=== PATIENT | female | born 1945 | race Caucasian/White ===

== ENCOUNTER 2017-08-02 02:22 | Observation (INO) | payer MEDICARE, OTHER ==
[~2017-08-02] VITALS: Ht 166.4 cm; Wt 65.0 kg
[2017-08-02] VITALS (8 sets, daily range): BP systolic 130–183; BP diastolic 76–90; PULSE 78–97; RESP 16–18; TEMP 97.7–98.4; O2SAT 96–100
[~2017-08-02 02:22] MED LIST: ALEN70 PO; IMIT100T OR
[2017-08-02] MEDS ORDERED: ALPR0.5T3 PO (02:47)
[2017-08-02] MEDS ORDERED: DENO60P SQ (02:47)
[2017-08-02] MEDS ORDERED: ASPI-516 CHEW (02:47)
[2017-08-02] MEDS ORDERED: SUMA100T2 PO (02:47)
[2017-08-02 03:02] LABS: AUTOMATED NEUTROPHIL # 3.1 TH/MM3 (1.8-7.7); BASOPHIL # 0.1 TH/MM3 (0-0.2); BASOPHIL % 1.1 % (0.0-2.0); EOSINOPHIL # 0.2 TH/MM3 (0-0.4); EOSINOPHIL % 2.5 % (0.0-4.0); HEMATOCRIT 44.3 % (35.0-46.0); HEMOGLOBIN 14.9 GM/DL (11.6-15.3); LYMPH % 52.6 % (9.0-44.0); LYMPHOCYTE # 4.3 TH/MM3 (1.0-4.8); MEAN CELL VOLUME 90.4 FL (80.0-100.0); MEAN CORPUSCULAR HEMOGLOBIN 30.4 PG (27.0-34.0); MEAN CORPUSCULAR HGB CONC 33.6 % (32.0-36.0); MEAN PLATELET VOLUME 10.3 FL (7.0-11.0); MONO % 6.7 % (0.0-8.0); MONOCYTE # 0.6 TH/MM3 (0-0.9); NEUT % 37.1 % (16.0-70.0); PLATELET COUNT 174 TH/MM3 (150-450); RED BLOOD COUNT 4.91 MIL/MM3 (4.00-5.30); RED CELL DISTRIBUTION WIDTH 13.5 % (11.6-17.2); WHITE BLOOD COUNT 8.3 TH/MM3 (4.0-11.0)
[2017-08-02 03:12] LABS: PROTHROMBIN TIME - PATIENT 10.1 SEC (9.8-11.6)
[2017-08-02 03:24] LABS: TROPONIN I LESS THAN 0.02 NG/ML (0.02-0.05)
[2017-08-02 03:25] LABS: BICARBONATE 23.9 MEQ/L (21.0-32.0); BLOOD UREA NITROGEN 22 MG/DL (7-18); CALCIUM 9.5 MG/DL (8.5-10.1); CHLORIDE 107 MEQ/L (98-107); CREATININE 0.94 MG/DL (0.50-1.00); GLOMERULAR FILTRATION RATE 58 ML/MIN (>89); GLUCOSE,RANDOM 101 MG/DL (74-106); MAGNESIUM 2.2 MG/DL (1.5-2.5); SODIUM (NA) 142 MEQ/L (136-145)
--- NOTE | 2017-08-02 03:32 | PD ---
HPI Chief Complaint: Cardiac Complaint Time Seen by Provider: 02:34 Travel History International Travel<30 days: No Contact w/Intl Traveler<30days: No Traveled to known affect area: No History of Present Illness HPI pt awoke tonight shaking feeling cold and for 20 minutes went a sat on couch turn and changed the temp on the air conditioning but it continued , SHe 4 days ago had a near syncopal episode while riding her bicycle with , they ride every night in evening for years , that night she felt dizziness and then they stopped held her up and lowered her to the ground and she lay on the grass lawn of police officier that they knew , he drove her home pigs feet finisher at the scene that night advised her if anything returns ( dizzness lightheraded) to go to hospital , SO tonight after she awoke shivering and tremulous she thought she should come to hospital and on arrival she seems anxious of her current health, bedside is good historian for all of the above HPI and ROS PFSH Past Medical History Asthma: No Blood Disorders: No Anxiety: Yes Depression: No Heart Rhythm Problems: No Cancer: Yes (LEFT AND RIGHT BREAST LUMPECTOMY) Cardiovascular Problems: No High Cholesterol: No Chemotherapy: No Chest Pain: No Congestive Heart Failure: No COPD: No Diabetes: No Endocrine: No Genitourinary: No Immune Disorder: No Musculoskeletal: No Neurologic: No Psychiatric: No Reproductive: No Respiratory: No Radiation Therapy: Yes Sleep Apnea: No Thyroid Disease: No Past Surgical History Tonsillectomy: Yes Other Surgery: Yes Social History Alcohol Use: Yes (OCC) Tobacco Use: No Substance Use: No Allergies-Medications (Allergen,Severity, Reaction): Coded Allergies: Cephalosporins (Verified Allergy, Unknown, 08/02/17) Reported Meds & Prescriptions Reported Meds & Active Scripts Active Reported Aspirin 81 Mg Chew 81 Mg CHEW DAILY Alprazolam 0.5 Mg Tab 0.5 Mg PO Q6H PRN Prolia Inj (Denosumab) 60 Mg/Ml Inj 60 Mg SQ Q180D Sumatriptan (Sumatriptan Succinate) 100 Mg Tab 100 Mg PO ONCE PRN If a satisfactory response has not been obtained at 2 hours, a second dose may be administered Review of Systems Except as stated in HPI: all other systems reviewed are Neg Physical Exam Narrative GENERAL: slightly pale appears anxious of her current health state SKIN: Warm and dry. HEAD: Atraumatic. Normocephalic. EYES: Pupils equal and round. No scleral icterus. No injection or drainage. ENT: No nasal bleeding or discharge. Mucous membranes pink and moist. NECK: Trachea midline. No JVD. CARDIOVASCULAR: Regular rate and rhythm. RESPIRATORY: No accessory muscle use. Clear to auscultation. Breath sounds equal bilaterally. GASTROINTESTINAL: Abdomen soft, non-tender, nondistended. Hepatic and splenic margins not palpable. MUSCULOSKELETAL: Extremities without clubbing, cyanosis, or edema. No obvious deformities. NEUROLOGICAL: Awake and alert. No obvious cranial nerve deficits. Motor grossly within normal limits. Five out of 5 muscle strength in the arms and legs. Normal speech. PSYCHIATRIC: Appropriate mood and affect; insight and judgment normal. Data Data Last Documented VS Vital Signs Date Time Temp Pulse Resp B/P (MAP) Pulse Ox O2 Delivery O2 Flow Rate FiO2 08/02/17 02:42 93 18 183/86 (118) 99 Room Air 08/02/17 02:26 98.0 Orders Orders Electrocardiogram (08/02/17 02:36) Basic Metabolic Panel (Bmp) (08/02/17 02:36) Ckmb (Isoenzyme) Profile (08/02/17 02:36) Complete Blood Count With Diff (08/02/17 02:36) Magnesium (Mg) (08/02/17 02:36) Prothrombin Time / Inr (Pt) (08/02/17 02:36) Act Partial Throm Time (Ptt) (08/02/17 02:36) Troponin I (08/02/17 02:36) Chest, Single Ap (08/02/17 02:36) CKMB (08/02/17 02:50) CKMB% (08/02/17 02:50) Urinalysis - C+S If Indicated (08/02/17 03:33) Alprazolam (Xanax) (08/02/17 04:30) Admit Order (Ed Use Only) (08/02/17 04:29) Labs Laboratory Tests Test 08/02/17 02:50 08/02/17 03:50 White Blood Count 8.3 TH/MM3 Red Blood Count 4.91 MIL/MM3 Hemoglobin 14.9 GM/DL Hematocrit 44.3 % Mean Corpuscular Volume 90.4 FL Mean Corpuscular Hemoglobin 30.4 PG Mean Corpuscular Hemoglobin Concent 33.6 % Red Cell Distribution Width 13.5 % Platelet Count 174 TH/MM3 Mean Platelet Volume 10.3 FL Neutrophils (%) (Auto) 37.1 % Lymphocytes (%) (Auto) 52.6 % Monocytes (%) (Auto) 6.7 % Eosinophils (%) (Auto) 2.5 % Basophils (%) (Auto) 1.1 % Neutrophils # (Auto) 3.1 TH/MM3 Lymphocytes # (Auto) 4.3 TH/MM3 Monocytes # (Auto) 0.6 TH/MM3 Eosinophils # (Auto) 0.2 TH/MM3 Basophils # (Auto) 0.1 TH/MM3 CBC Comment DIFF FINAL Differential Comment Prothrombin Time 10.1 SEC Prothromb Time International Ratio 1.0 RATIO Activated Partial Thromboplast Time 25.6 SEC Blood Urea Nitrogen 22 MG/DL Creatinine 0.94 MG/DL Random Glucose 101 MG/DL Calcium Level 9.5 MG/DL Magnesium Level 2.2 MG/DL Sodium Level 142 MEQ/L Potassium Level 3.7 MEQ/L Chloride Level 107 MEQ/L Carbon Dioxide Level 23.9 MEQ/L Anion Gap 11 MEQ/L Estimat Glomerular Filtration Rate 58 ML/MIN Total Creatine Kinase 211 U/L Creatine Kinase MB 0.9 NG/ML Creatine Kinase MB % 0.4 % Troponin I LESS THAN 0.02 NG/ML Urine Color LIGHT-YELLOW Urine Turbidity CLEAR Urine pH 6.0 Urine Specific [place] 1.009 Urine Protein NEG mg/dL Urine Glucose (UA) NEG mg/dL Urine Ketones TRACE mg/dL Urine Occult Blood NEG Urine Nitrite NEG Urine Bilirubin NEG Urine Urobilinogen LESS THAN 2.0 MG/DL Urine Leukocyte Esterase NEG Urine RBC LESS THAN 1 /hpf Urine WBC LESS THAN 1 /hpf Urine Squamous Epithelial Cells 2 /hpf Urine Mucus FEW /lpf Microscopic Urinalysis Comment CULT NOT INDICATED MDM Medical Decision Making Medical Screen Exam Complete: Yes Emergency Medical Condition: Yes Differential Diagnosis cardiac event cuasing near syncope and recurrence tonight vs neurologic causes vs anxiety attack tonight over her health scare four days ago other . PE vs UTI vs other systemic illness or infectious source for symptoms Narrative Course Urine negative and labs normal and EKG and troponin negative will admit for serial trop and Stress in AM pt agrees with plan Diagnosis Primary Impression: Tremulousness Juan Diego Powers MD Aug 02, 2017 03:32
--- NOTE | 2017-08-02 03:32 | RADRPT ---
EXAM DATE: 08/02/2017 2:59 AM EDT AGE/SEX: 72 years / Female INDICATIONS: Weakness, body shakes for 1 hour CLINICAL DATA: This is the patient's initial encounter. Patient reports that signs and symptoms have been present for 1 day and indicates a pain score of 3/10. MEDICAL/SURGICAL HISTORY: None. None. COMPARISON: No prior exams available for comparison. FINDINGS: A single AP view of the chest demonstrates the lungs to be symmetrically aerated without evidence of mass, infiltrate or effusion. The cardiomediastinal contours are unremarkable. Osseous structures a re intact. CONCLUSION: Negative examination. Electronically signed by: Ryan Trent MD 08/02/2017 3:30 AM EDT
[2017-08-02 04:07] LABS: BILIRUBIN, URINE NEG (NEG); BLOOD, URINE NEG (NEG); GLUCOSE,URINE NEG (NEG); KETONE, URINE TRACE mg/dL (NEG); MUCUS URINE FEW /lpf (OCC); NITRITE,URINE NEG (NEG); SQUAMOUS EPITHELIAL CELL URINE 2 /hpf (0-5); URINE COLOR LIGHT-YELLOW (YELLW/STRAW); URINE LEUKOCYTE ESTERASE NEG (NEG)
[2017-08-02] MEDS ORDERED: ALPRAZolam 0.5 MG TAB PO ONE (04:30)
[2017-08-02] MEDS ORDERED: SODIUM CHLORIDE 0.9% FLUSH 10 ML FLUSH IV FLUSH PRN (04:45)
[2017-08-02 06:02] LABS: TROPONIN I LESS THAN 0.02 NG/ML (0.02-0.05)
[2017-08-02] MEDS ORDERED: SODIUM CHLORIDE 0.9% FLUSH 10 ML FLUSH IV FLUSH SCH (09:00)
[2017-08-02 09:26] LABS: TROPONIN I LESS THAN 0.02 NG/ML (0.02-0.05)
--- NOTE | 2017-08-02 10:58 | HHI.HP ---
[facility] Primary Care Physician Lizbet Brandt MD Chief Complaint I felt shaky History of Present Illness This is a 72-year-old female that presents to ED with her via private vehicle with a complaint of waking up about 1:00 this morning and just not feeling right. Will after waking up she felt very shaky and cold. She woke up her . He checked her blood pressure which was 170/104 and heart rate was up but he did not notice with that was on the electronic blood pressure machine. She became concerned as she had a different episode about a week and a half ago while on a bike ride. They state that she and her about a 20 mile bike ride on a daily basis real early in the morning. A week and a half ago he did the same bike ride but it was later in the day and it was much harder. After about 10 mile she states that she had to stop abruptly. She felt very unsteady and thought that she was about to pass out. She relayed this information to her who noticed that she was unsteady and he grabbed her and as he grabbed her she had a syncopal episode. States it lasted about 4 seconds. He later down to the grass and as he did that she had another syncopal episode lasting about 10 seconds. She did not have a headache prior. There is no seizure activity. States that afterwards she did not seem confused. He did check her pulse and found it to be fast but could not give a rate. Did not feel irregular. Denies having syncopal episodes in the past. States that other than doing the bicycle ride later in the day with a higher temperature that it was a typical type activity for her. Her called 911 and upon arrival they checked her vital signs and did an EKG and everything seems stable. Transportation to the hospital was offered but at that time they declined. Her states that she looked fine and was behaving her normal fashion at that time. Denies history of CAD but states she has not had a cardiac workup in the past. Her was able to secure an appointment with his travel freight and passenger agent which is Dr. Lopez on the of this month. She currently feels fine. When asked to describe the episodes when she has fast heart rate. She states that she is actually had this in the past. States that when she gets anxious her heart rate will pharmacy picking tech but this seems to be different. Cannot really describe if the increased heart rate is abrupt with a quick return to normal rate or if the heart rate gradually builds up and then gradually resolves. Review of Systems General: Patient denies fevers, chills, and recent travel. HEENT: Patient denies headache, sore throat, difficulty swallowing. Cardiovascular: She had 2 syncopal episodes rapidly her closely to each other about a week and half ago while on her typical bike ride. Denies chest discomfort as mentioned above. Denies sensation of heart beating rapidly or irregularly. Denies diaphoresis. Respiratory: Denies shortness of breath or inspirational chest discomfort. Denies coughing wheezing or hemoptysis. GI: Patient denies nausea, vomiting, diarrhea, abdominal pain, bloody stools. Musculoskeletal: Patient denies joint pain or edema. Denies calf pain or edema. Neurovascular: Patient denies numbness, tingling, weakness in extremities. Denies headache. Endocrine: Denies polyuria and polydipsia. Hematologic: Denies easy bruising. Skin: Denies rash or itching. Past Family Social History Allergies: Coded Allergies: Cephalosporins (Verified Allergy, Unknown, 08/02/17) Past Medical History Anxiety. History of breast cancer and is in remission. Migraines. Denies hypertension, hyperlipidemia, diabetes, and known CAD. Past Surgical History She has had lumpectomy of the breast 2. Tonsillectomy. Reported Medications Reported Meds & Active Scripts Active Reported Aspirin 81 Mg Chew 81 Mg CHEW DAILY Alprazolam 0.5 Mg Tab 0.5 Mg PO Q6H PRN Prolia Inj (Denosumab) 60 Mg/Ml Inj 60 Mg SQ Q180D Sumatriptan (Sumatriptan Succinate) 100 Mg Tab 100 Mg PO ONCE PRN If a satisfactory response has not been obtained at 2 hours, a second dose may be administered Active Ordered Medications Current Medications Medications (Trade) Dose Ordered Sig/Jesús Route Start Time Stop Time Status Last Admin (NS Flush) 2 ml UNSCH PRN IV FLUSH 08/02/17 04:45 (NS Flush) 2 ml BID IV FLUSH 08/02/17 09:00 08/02/17 09:00 Family History Denies family history of CAD. Social History Lifetime non-smoker. Rarely has alcohol. Denies illicit drug use. She is . Physical Exam Vital Signs Vital Signs Date Time Temp Pulse Resp B/P (MAP) Pulse Ox O2 Delivery O2 Flow Rate FiO2 08/02/17 07:56 97 21 08/02/17 07:49 97.7 78 18 137/76 (96) 96 08/02/17 07:00 80 08/02/17 06:23 83 08/02/17 06:04 98.4 90 16 145/90 (108) 97 08/02/17 06:03 08/02/17 05:45 85 18 130/76 (94) 99 Room Air 08/02/17 02:42 93 18 183/86 (118) 99 Room Air 08/02/17 02:26 98.0 97 16 163/76 (105) 100 Physical Exam GENERAL: This is a well-nourished, well-developed patient, in no apparent distress. Patient speaks in clear complete sentences. Patient is pleasant. HEENT: Head is atraumatic and normocephalic. Neck is supple without lymphadenopathy and trachea is midline. No JVD or carotid bruits. CARDIOVASCULAR: Regular rate and rhythm without murmurs, gallops, or rubs. RESPIRATORY: Clear to auscultation. Breath sounds equal bilaterally. No wheezes , rales, or rhonchi. Chest wall is nontender. No use of accessory muscles. GASTROINTESTINAL: Abdomen is nontender, nondistended. Abdomen soft. No obvious pulsatile mass or bruit. No CVA tenderness. Strong femoral pulses bilaterally. Normal bowel sounds in all quadrants. MUSCULOSKELETAL: Patient is moving upper and lower extremities freely. No calf tenderness or edema, no Homans sign. Strong pulses in upper and lower extremities. NEUROLOGICAL: Patient is alert and oriented. Cranial nerves 2-12 are grossly intact. No focal deficits and speech is clear. SKIN: No rash and turgor is normal. Laboratory Laboratory Tests Test 08/02/17 02:50 08/02/17 03:50 08/02/17 05:13 08/02/17 08:20 White Blood Count 8.3 Red Blood Count 4.91 Hemoglobin 14.9 Hematocrit 44.3 Mean Corpuscular Volume 90.4 Mean Corpuscular Hemoglobin 30.4 Mean Corpuscular Hemoglobin Concent 33.6 Red Cell Distribution Width 13.5 Platelet Count 174 Mean Platelet Volume 10.3 Neutrophils (%) (Auto) 37.1 Lymphocytes (%) (Auto) 52.6 Monocytes (%) (Auto) 6.7 Eosinophils (%) (Auto) 2.5 Basophils (%) (Auto) 1.1 Neutrophils # (Auto) 3.1 Lymphocytes # (Auto) 4.3 Monocytes # (Auto) 0.6 Eosinophils # (Auto) 0.2 Basophils # (Auto) 0.1 CBC Comment DIFF FINAL Differential Comment Prothrombin Time 10.1 Prothromb Time International Ratio 1.0 Activated Partial Thromboplast Time 25.6 Blood Urea Nitrogen 22 Creatinine 0.94 Random Glucose 101 Calcium Level 9.5 Magnesium Level 2.2 Sodium Level 142 Potassium Level 3.7 Chloride Level 107 Carbon Dioxide Level 23.9 Anion Gap 11 Estimat Glomerular Filtration Rate 58 Total Creatine Kinase 211 188 149 Creatine Kinase MB 0.9 0.8 0.5 Creatine Kinase MB % 0.4 Troponin I LESS THAN 0.02 LESS THAN 0.02 LESS THAN 0.02 Urine Color LIGHT-YELLOW Urine Turbidity CLEAR Urine pH 6.0 Urine Specific [place] 1.009 Urine Protein NEG Urine Glucose (UA) NEG Urine Ketones TRACE Urine Occult Blood NEG Urine Nitrite NEG Urine Bilirubin NEG Urine Urobilinogen LESS THAN 2.0 Urine Leukocyte Esterase NEG Urine RBC LESS THAN 1 Urine WBC LESS THAN 1 Urine Squamous Epithelial Cells 2 Urine Mucus FEW Microscopic Urinalysis Comment CULT NOT INDICATED Result Diagram: 08/02/17 0250 08/02/17 0250 Imaging Last 48 hours Impressions Chest X-Ray 08/02/17 0236 Signed Impressions: CONCLUSION: Negative examination. Course EKGs are sinus rhythm without significant ST segment depressions or elevations. I reviewed telemetry, no arrhythmias seen while in chest pain center. Caprini VTE Risk Assessment Caprini VTE Risk Assessment: Mod/High Risk (score >= 2) Caprini Risk Assessment Model Point Value = 1 Point Value = 2 Point Value = 3 Point Value = 5 Age 41-60 Minor surgery BMI > 25 kg/m2 Swollen legs Varicose veins or History of unexplained or recurrent spontaneous Oral contraceptives or hormone replacement Sepsis (< 1 month) Serious lung disease, including pneumonia (< 1 month) Abnormal pulmonary function Acute myocardial infarction Congestive heart failure (< 1 month) History of inflammatory bowel disease Medical patient at bed rest Age 61-74 Arthroscopic surgery Major open surgery (> 45 min) Laparoscopic surgery (> 45 min) Malignancy Confined to bed (> 72 hours) Immobilizing plaster cast Central venous access Age >= 75 History of VTE Family history of VTE Factor V Leiden Prothrombin [id number] Lupus anticoagulant Anticardiolipin antibodies Elevated serum homocysteine Heparin-induced thrombocytopenia Other congenital or acquired thrombophilia Stroke (< 1 month) Elective arthroplasty Hip, pelvis, or leg fracture Acute spinal cord injury (< 1 month) Prophylaxis Regimen Total Risk Factor Score Risk Level Prophylaxis Regimen 0-1 Low Early ambulation 2 Moderate Order ONE of the following: *Sequential Compression Device (SCD) *Heparin 5000 units SQ BID 3-4 Higher Order ONE of the following medications: *Heparin 5000 units SQ TID *Enoxaparin/Lovenox 40 mg SQ daily (WT < 150 kg, CrCl > 30 mL/min) *Enoxaparin/Lovenox 30 mg SQ daily (WT < 150 kg, CrCl > 10-29 mL/min) *Enoxaparin/Lovenox 30 mg SQ BID (WT < 150 kg, CrCl > 30 mL/min) AND/OR *Sequential Compression Device (SCD) 5 or more Highest Order ONE of the following medications: *Heparin 5000 units SQ TID (Preferred with Epidurals) *Enoxaparin/Lovenox 40 mg SQ daily (WT < 150 kg, CrCl > 30 mL/min) *Enoxaparin/Lovenox 30 mg SQ daily (WT < 150 kg, CrCl > 10-29 mL/min) *Enoxaparin/Lovenox 30 mg SQ BID (WT < 150 kg, CrCl > 30 mL/min) AND *Sequential Compression Device (SCD) Assessment and Plan Assessment and Plan * Syncopal and near syncopal event: Patient has had serial cardiac enzymes and EKGs for ruling out purposes. Suspect possible arrhythmia causing her symptoms. Patient was also evaluated by Dr. Barth of cardiology and the chest pain center. Dr. Barth spoke with Dr. Lopez and will see her in his office this Friday which would be August 04. Dr. Barth is conversation that he had with Dr. Lopez and is agreeable to this plan. She should return to ED for any interval issues. Patient is stable at this time. She is agreeable to this plan. Scott Borges Aug 02, 2017 10:58
--- NOTE | 2017-08-02 11:35 | HHI.DCPOC ---
Discharge Care Plan Diagnosis: (1) Syncope (2) Syncope, near Goals to Promote Your Health * To prevent worsening of your condition and complications * To maintain your health at the optimal level Directions to Meet Your Goals Take your medications as prescribed Follow your dietary instruction Follow activity as directed Keep your appointments as scheduled Take your immunizations and boosters as scheduled If your symptoms worsen call your PCP, if no PCP go to Urgent Care Center or Emergency Room Smoking is Dangerous to Your Health. Avoid second hand smoke Call the 24-hour hour crisis hotline for domestic abuse at Scott Borges Aug 02, 2017 11:35
--- NOTE | 2017-08-02 12:04 | PD.CARD.PN ---
Subjective Subjective Remarks Very pleasant 72-year-old lady who presents with a history of having a brief syncopal episode approximately a week ago while in the midst of a bicycle ride. She and her ride approximately 20 miles a day 6 days a week. Her syncopal episode was brief she was assisted to her feet by her and then had a second episode. [facility] responded but after evaluation patient declined to come to the hospital. Her is followed by Dr. Talbot a daughter and they set up an appointment to be seen by Dr. Dr. Talbot in our on the of this month. She woke at 1:30 in the morning "just did not feel right", felt uneasy and noted that her pulse seemed to be fast. She also felt some anxiety with this. Remaining history is as described and documented. Objective Medications Current Medications Medications (Trade) Dose Ordered Sig/Jesús Route Start Time Stop Time Status Last Admin (NS Flush) 2 ml UNSCH PRN IV FLUSH 08/02/17 04:45 (NS Flush) 2 ml BID IV FLUSH 08/02/17 09:00 08/02/17 09:00 Vital Signs / I&O Vital Signs Date Time Temp Pulse Resp B/P (MAP) Pulse Ox O2 Delivery O2 Flow Rate FiO2 08/02/17 07:56 97 21 08/02/17 07:49 97.7 78 18 137/76 (96) 96 08/02/17 07:00 80 08/02/17 06:23 83 08/02/17 06:04 98.4 90 16 145/90 (108) 97 08/02/17 06:03 08/02/17 05:45 85 18 130/76 (94) 99 Room Air 08/02/17 02:42 93 18 183/86 (118) 99 Room Air 08/02/17 02:26 98.0 97 16 163/76 (105) 100 Physical Exam Well-nourished well-developed lady sitting on the side of the bed with no discomfort Neck supple no JVD masses nodes or bruits Chest clear to auscultation with no rales wheezes or rhonchi Cardiovascular reveals a regular sinus rhythm with no gallops rubs or murmurs. Vagal pressure does produce significant heart slowing followed by a slight sense of dizziness Laboratory Laboratory Tests Test 08/02/17 02:50 08/02/17 03:50 08/02/17 05:13 08/02/17 08:20 White Blood Count 8.3 TH/MM3 Red Blood Count 4.91 MIL/MM3 Hemoglobin 14.9 GM/DL Hematocrit 44.3 % Mean Corpuscular Volume 90.4 FL Mean Corpuscular Hemoglobin 30.4 PG Mean Corpuscular Hemoglobin Concent 33.6 % Red Cell Distribution Width 13.5 % Platelet Count 174 TH/MM3 Mean Platelet Volume 10.3 FL Neutrophils (%) (Auto) 37.1 % Lymphocytes (%) (Auto) 52.6 % Monocytes (%) (Auto) 6.7 % Eosinophils (%) (Auto) 2.5 % Basophils (%) (Auto) 1.1 % Neutrophils # (Auto) 3.1 TH/MM3 Lymphocytes # (Auto) 4.3 TH/MM3 Monocytes # (Auto) 0.6 TH/MM3 Eosinophils # (Auto) 0.2 TH/MM3 Basophils # (Auto) 0.1 TH/MM3 CBC Comment DIFF FINAL Differential Comment Prothrombin Time 10.1 SEC Prothromb Time International Ratio 1.0 RATIO Activated Partial Thromboplast Time 25.6 SEC Blood Urea Nitrogen 22 MG/DL Creatinine 0.94 MG/DL Random Glucose 101 MG/DL Calcium Level 9.5 MG/DL Magnesium Level 2.2 MG/DL Sodium Level 142 MEQ/L Potassium Level 3.7 MEQ/L Chloride Level 107 MEQ/L Carbon Dioxide Level 23.9 MEQ/L Anion Gap 11 MEQ/L Estimat Glomerular Filtration Rate 58 ML/MIN Total Creatine Kinase 211 U/L 188 U/L 149 U/L Creatine Kinase MB 0.9 NG/ML 0.8 NG/ML 0.5 NG/ML Creatine Kinase MB % 0.4 % Troponin I LESS THAN 0.02 NG/ML LESS THAN 0.02 NG/ML LESS THAN 0.02 NG/ML Urine Color LIGHT-YELLOW Urine Turbidity CLEAR Urine pH 6.0 Urine Specific [place] 1.009 Urine Protein NEG mg/dL Urine Glucose (UA) NEG mg/dL Urine Ketones TRACE mg/dL Urine Occult Blood NEG Urine Nitrite NEG Urine Bilirubin NEG Urine Urobilinogen LESS THAN 2.0 MG/DL Urine Leukocyte Esterase NEG Urine RBC LESS THAN 1 /hpf Urine WBC LESS THAN 1 /hpf Urine Squamous Epithelial Cells 2 /hpf Urine Mucus FEW /lpf Microscopic Urinalysis Comment CULT NOT INDICATED Imaging Last 24 hours Impressions Chest X-Ray 08/02/17 0236 Signed Impressions: CONCLUSION: Negative examination. Assessment and Plan Assessment and Plan The patient rule out with standard protocol and since she is already scheduled to see Dr. Leos a call was placed to him personally. He requested that the patient be discharged at this time to contact his office Friday morning. He gave assurance that the patient would be seen rapidly for further evaluation. Patient is discharged with instructions to return here if she has any additional problems at all over the weekend and then follow-up with him on Friday as directed Discussed Condition With This plan was discussed with the patient and her thoroughly Pablo Barth MD Aug 02, 2017 12:04
--- NOTE | 2017-08-02 12:21 | EKG ---
Date Performed: 08/02/2017 Time Performed: 04:16:25 PTAGE: 72 years EKG: Sinus rhythm POSSIBLE RIGHT VENTRICULAR CONDUCTION DELAY NONSPECIFIC ST & T-WAVE ABNORMALITY BORDERLINE ECG No si gnificant change NO PREVIOUS TRACING DOCTOR: Pablo Barth Interpretating Date/Time 08/02/2017 12:20:15
--- NOTE | 2017-08-02 12:22 | EKG ---
Date Performed: 08/02/2017 Time Performed: 01:42:11 PTAGE: 72 years EKG: Sinus rhythm POSSIBLE LEFT ATRIAL ENLARGEMENT NONSPECIFIC ST & T-WAVE ABNORMALITY BORDERLINE ECG NO PREVIOUS TRACING DOCTOR: Pablo Barth Interpretating Date/Time 08/02/2017 12:20:56
--- NOTE | 2017-08-03 13:12 | EKG ---
Date Performed: 08/02/2017 Time Performed: 09:18:36 PTAGE: 72 years EKG: Sinus rhythm NORMAL ECG No significant change PREVIOUS TRACING : 08/02/2017 04.16 DOCTOR: Pablo Barth Interpretating Date/Time 08/03/2017 13:10:02
== END 2017-08-02 12:36 | disposition home or self-care (01) ==
LOC: NEPE 02:22 → NEDA 04:32 → NEPGCP 06:01
PROVIDERS: ADMIT Internal Medicine Cardiovascular Disease; ATTEND Internal Medicine Cardiovascular Disease
DX: R55 Syncope and collapse (principal); F41.9 Anxiety disorder, unspecified; Z85.3 Personal history of malignant neoplasm of breast; Z79.899 Other long term (current) drug therapy; Z79.82 Long term (current) use of aspirin
CPT/HCPCS: 71045; 80048; 81001; 82550; 82552; 83735; 84484; 85025; 85610; 85730; 93005; 99285; G0378

== ENCOUNTER 2017-08-05 10:25 | Day surgery (SDC) | payer MEDICARE ==
[~2017-08-05] VITALS: Ht 166.4 cm; Wt 61.2 kg
[~2017-08-05 10:25] MED LIST changes: -ALEN70 PO; +ALPR0.5T3 PO; +ASPI-516 CHEW; +DENO60P SQ; -IMIT100T OR; +SUMA100T2 PO
[2017-08-05] MEDS ORDERED: IOHEXOL 350 MG/ML 50 ML BTL (for Cath Lab) OTHER ONE (10:26)
[2017-08-05] MEDS ORDERED: SODIUM CHLOR 0.9% 1000 ML INJ 1,000 ML IV SCH ×2 (10:45→15:07)
[2017-08-05 11:22] VITALS: BP 135/95; PULSE 91; RESP 18; TEMP 97.8; O2SAT 99
[2017-08-05] MEDS ORDERED: MAGN250T11 PO (11:32)
[2017-08-05] MEDS ORDERED: VITA200C3 PO (11:32)
[2017-08-05] MEDS ORDERED: VITA1000 PO (11:32)
[2017-08-05] MEDS ORDERED: AROM25TA (11:32)
[2017-08-05] MEDS ORDERED: CALC1TAB87 PO (11:32)
[2017-08-05] MEDS ORDERED: VITACAP7 PO (11:32)
[2017-08-05] MEDS ORDERED: OMEGCAP PO (11:32)
[2017-08-05 11:51] LABS: AUTOMATED NEUTROPHIL # 5.2 TH/MM3 (1.8-7.7); BASOPHIL % 0.5 % (0.0-2.0); EOSINOPHIL % 0.4 % (0.0-4.0); HEMATOCRIT 43.2 % (35.0-46.0); HEMOGLOBIN 14.3 GM/DL (11.6-15.3); LYMPHOCYTE # 2.5 TH/MM3 (1.0-4.8); MEAN CELL VOLUME 90.1 FL (80.0-100.0); MEAN CORPUSCULAR HEMOGLOBIN 29.9 PG (27.0-34.0); MEAN CORPUSCULAR HGB CONC 33.2 % (32.0-36.0); MEAN PLATELET VOLUME 10.5 FL (7.0-11.0); MONO % 6.6 % (0.0-8.0); MONOCYTE # 0.5 TH/MM3 (0-0.9); NEUT % 62.5 % (16.0-70.0); PLATELET COUNT 184 TH/MM3 (150-450); RED BLOOD COUNT 4.79 MIL/MM3 (4.00-5.30); RED CELL DISTRIBUTION WIDTH 13.8 % (11.6-17.2); WHITE BLOOD COUNT 8.3 TH/MM3 (4.0-11.0)
[2017-08-05 12:02] LABS: PROTHROMBIN TIME - PATIENT 10.2 SEC (9.8-11.6)
[2017-08-05 12:11] LABS: BICARBONATE 26.8 MEQ/L (21.0-32.0); CALCIUM 9.1 MG/DL (8.5-10.1); CREATININE 0.96 MG/DL (0.50-1.00)
[2017-08-05] MEDS ORDERED: HEPARIN-NS/PF INJ 500 ML ONE (12:54)
[2017-08-05] MEDS ORDERED: MIDAZOLAM HCL 2 MG/2 ML VIAL ONE (12:54)
--- NOTE | 2017-08-05 14:02 | CATHPROC ---
[employer] HIS Report Study Information Study Number Admission Scheduled Start Study Start [id number] Aug 05 2017 10:25AM 08/05/2017 Aug 05 2017 12:44PM [place] [facility] Cardiac Catheterization Admit Source Facility Department Other [facility] - Internet Sales Representative Physician and Clinical Staff Initial Marychuy Kat Psychological Examiner Evgeny Torrez RN Recorder Deana Torres,RT(R) Recorder Sharmin Nogueira,AISHWARYA Scrub Olivia Dolan ,RT(R) Procedures Performed Procedure Location (Site) Vessel Name Coronary Angiograms LCA Left Coronary Coronary Angiograms RCA Right Coronary L Heart Cath Equipment Time Tuberculosis Specialist Description Size Mfg Part Number Used/Scraped TRANSDUCER, TRUWAVE [id number] 13:29 GLOVER CASTANEDA * Used W/STOCKCOCK *[id number] [id number] *[id number] [id number] *[id number] INTRODUCER SET, 13:29 [employer] * KIT-[id number] Used MICROPUNCTURE [id number] 13:29 [employer] BLANKET,WARM AIR CCL * Used *[id number] 13:29 [employer] PACK, CCL CUSTOM * Used *[id number] 13:29 [employer] ASA PACER PEN, SKIN DUAL W/ RULER * Used *[id number] 13:29 [employer] WIRE, 3MMJ .035 180CM 180CM Used *[id number] PROBE COVER, STERILE [id number] 13:29 [employer] Systems * Used ULTRASOUND W/ GEL *[id number] 13:29 NAMIC MANIFOLD, 4 PORT * Used *[id number] 13:29 [employer]ED OMNIPAQUE, 350 MG, 150ML 150ML [id number] Used [id number] 13:29 [employer] MEDICAL SHEATH, FR4 TERUMO (10CM) FR 4 Used *[id number] History: Current Medications Medication Dosage/Unit Route Frequency Last Date/Time Taken ASA History: Allergies Allergy Reaction Ancef ANAPHYLAXIS cefazolin ANAPHYLAXIS Cephalosporins Anaphylaxis History: Risk Factors Family History of Hypertension Dyslipidemia Previous HI Previous Heart Failure Premature CAD Yes No No No No Prior Valve Prior PCI Prior CABG Surgery No No No Cerebrovascular Peripheral Artery Chronic Lung On Dialysis Diabetes Disease Disease Disease No No No No No History: Stress Tests Stress or Imaging Studies Performed No History: Other Current Smoker No Labs Hgb (g/dl) Hct (%) WBC (l/cumm) Platelets (thousands) 11.60-17.00 35.00-51.00 4.00-11.00 150.00-450.00 14.3 43.2 8.3 184 Glucose (mg/dl) BUN (mg/dl) Creatinine (mg/dl) BUN:Creatinine (1:x) 74.00-106.00 7.00-18.00 0.50-1.30 10.00-20.00 96 19 0.9 21.1 Na (meq/l) K (meq/l) 136.00-145.00 3.50-5.10 143 4.2 INR (PTT:PT) 0.90-1.10 1 CPK-MB (ng/ML) 0.50-3.60 Not Drawn Medication Medication Total Dose (Bolus/Oral) Medication Total Dosage/Unit 1% XYLOCAINE 20 mL Medications (Bolus/Oral) Medication Time Given Dosage/Unit Administered By Reason 1% XYLOCAINE 08/05/2017 1:26:46 PM 20 mL Marychuy Lopez 20 mL 1% XYLOCAINE given in lab by Marychuy Lopez in Right Groin via Subcutaneous. Ordered by Marychuy Oquendo. Medication (Drip) Medication Time Given Dosage/Unit Concentration/Unit Diluent (ml) Solution IV Solutions 08/05/2017 12:44:58 PM 50 mL (IV) NaCl .9 IV Solutions given in lab by Evgeny Torrez, RN in Left Antecubital via Peripheral IV. Pump/Drip Flow using NaCl .9. Initial Case Assessment Cardiovascular HR NIBP 93 142/99 Edema Present Skin color Skin None Normal Warm Dry Circulatory - Right Pulses Dorsalis Pedis Femoral 1 3 Scale (0,1,2,3,4,d) Circulatory - Left Pulses Dorsalis Pedis Femoral 2 3 Scale (0,1,2,3,4,d) Neurological State Oriented to time-place- Alert Moves all extremities person Respiration - General Respiration Rate SpO2 (%) (B/min) 8 100 Final Case Assessment Cardiovascular HR Rhythm NIBP Chest Pain 86 NSR 122/84 0 Edema Present Skin color Skin None Normal Warm Dry Circulatory - Right Pulses Dorsalis Pedis Posterior Tibial Femoral 2 2 2 Scale (0,1,2,3,4,d) Circulatory - Left Pulses Dorsalis Pedis Posterior Tibial Femoral 2 2 2 Scale (0,1,2,3,4,d) Circulatory - Lower Extremities Color Lower Right Color Lower Left Normal Normal Neurological State Oriented to time-place- Alert Moves all extremities person Respiration - General Respiration Rate SpO2 (%) (B/min) 12 96 Chronological Log Time Study Chronological Log 12:44:44 Patient arrived via Bed. 12:44:44 Patient Name, D.O.B, / Armband Verified By R.N. 12:44:45 Consent signed by the physician and the patient and verified by the Internet Sales Representative staff. 12:44:48 Verbal Stimulation=2 Physical Stimulation=2 Airway=2 Respiration=2 TOTAL=8. (0=absent, 1=li mited, 2=present) 12:44:49 Presedation assessment performed by Internet Sales Representative RN. 12:44:51 Patient has been NPO for More than 6Hrs. 12:44:53 Skin Breakdown- none 12:44:53 Patient Warmer Placed on the Table. 12:44:55 Garrett Prominences Protected 12:44:57 A # 20 IV was noted in the Antecubital (left). Grade = 0 12:44:58 IV Solutions given in lab by Evgeny Torrez, RN in Left Antecubital via Peripheral IV. Pump/ Drip Flow using NaCl .9. 12:44:58 History and physical on the chart or being dictated. Assessment: Initial Case, HR=93 BPM, VHAR=667/99 mmhg, Edema=None, Color=Normal, Skin = Warm, D ry Right Pulses: Yahir Ped=1, Femoral=3 12:44:59 Left Pulses: Yahir Ped=2, Femoral=3 Neurological: State=Alert, Ox3, CAMPO Respiration: Resp=8 B/min, ZcJ2=322 % Vitals capture started with the following parameters, Patient=Adult, Interval=5 min, Initial Pr qpvrnv=237 mmHg, 12:48:53 Deflation Rate=5 mmHg, Cuff placed on Left Arm 12:50:02 HR=93 bpm, JMRO=089/99 mmhg, SpO2=99.0 %, Resp=8 B/min, Pain=0, Salud=10, العراقي=2 12:51:17 Reference ECG taken 12:54:28 HR=87 bpm, CLSY=696/82 mmhg, SpO2=99.0 %, Resp=11 B/min, Pain=0, Salud=10, العراقي=2 12:58:22 Bilateral groins prepped with 2% chlorhexidine, and draped after a 3 minute waiting time. 12:58:32 paged 12:59:27 HR=87 bpm, UCEL=600/80 mmhg, SpO2=99.0 %, Resp=12 B/min, Pain=0, Salud=10, العراقي=2 13:02:11 Pressure channel 1 zeroed. 13:04:28 HR=86 bpm, YUJH=712/80 mmhg, SpO2=99.0 %, Resp=14 B/min, Pain=0, Salud=10, العراقي=2 13:09:27 HR=85 bpm, APTP=328/76 mmhg, SpO2=99.0 %, Resp=11 B/min, Pain=0, Salud=10, العراقي=2 13:10:51 MD responded 13:14:26 HR=83 bpm, TZZE=701/76 mmhg, SpO2=98.0 %, Resp=13 B/min, Pain=0, Salud=10, العراقي=2 13:19:28 HR=83 bpm, BIMX=018/79 mmhg, SpO2=98.0 %, Resp=13 B/min, Pain=0, Salud=10, العراقي=2 13:19:32 MD arrived. 13:24:26 HR=76 bpm, AYXC=065/72 mmhg, SpO2=99.0 %, Resp=10 B/min Time Out. Correct patient, correct procedure, correct physician, labs, allergies, and equipment verified with labor relations analyst 13:25:39 team present. Fire risk assesment completed (see hard stop sheet for coding). Time Out Conc urred by MD and individual staff in procedure. 13:26:30 Case Start 20 mL 1% XYLOCAINE given in lab by Marychuy Lopez in Right Groin via Subcutaneous. Ordered by John, 13:26:46 Marychuy. 13:28:23 Access site was Right Femoral Artery with micropuncture kit. 13:29:01 A SHEATH, FR4 TERUMO (10CM) FR 4 was advanced into the Fem Art (right) using the Modified S eldinger technique. 13:29:23 HR=84 bpm, OEJG=571/72 mmhg, EaS7=057.0 %, Resp=17 B/min, Pain=0, Salud=10, العراقي=2 A JL 4.0 INFINITI CATHETER FR 4 was advanced over a wire. OMNIPAQUE, 350 MG, 150ML 150ML was us ed for 13:30:19 injections. 13:31:33 The LCA was injected and visualized at various angles. OMNIPAQUE, 350 MG, 150ML 150ML used . Recorded Pressure: Ao, HR=90, Condition=Condition 1 13:32:05 (Aorta) Ao 125/80/101 13:32:44 Catheter was removed 13:34:23 HR=92 bpm, MBEK=351/87 mmhg, IpO2=480.0 %, Resp=13 B/min, Pain=0, Salud=10, العراقي=2 13:34:52 The RCA was injected and visualized at various angles. OMNIPAQUE, 350 MG, 150ML 150ML used . A 3DRC INFINITI CATHETER FR 4 was advanced over a wire. OMNIPAQUE, 350 MG, 150ML 150ML was used for 13:34:55 injections. 13:35:53 Catheter was removed 13:36:06 Case End (Physician broke scrub) 13:39:26 HR=90 bpm, DDAD=555/82 mmhg, SpO2=99.0 %, Resp=63 B/min, Pain=0, Salud=10, العراقي=2 13:40:45 Sheath removed; pressure applied to access site. 13:40:55 No case complications noted. 13:40:56 Cine recording checked. 13:41:02 DOCU called. Spoke to AISHWARYA Palmer 13:41:28 Bedside Report will be given. 13:41:31 Verbal Stimulation=2 Physical Stimulation=2 Airway=2 Respiration=2 TOTAL=8. (0=absent, 1=l imited, 2=present) Assessment: Final Case, HR=86 BPM, Rhythm=NSR, MXJU=283/84 mmhg, Chest Pain=0, Edema=None, Col or=Normal, Skin = Warm, Dry Right Pulses: Yahir Ped=2, Post Tib=2, Femoral=2 Left Pulses: Yahir Ped=2, Post Tib=2, Femoral=2 13:43:33 Lower Right Extremities: Color=Normal Lower Left Extremities: Color=Normal Neurological: State=Alert, Ox3, CAMPO Respiration: Resp=12 B/min, SpO2=96 % 13:44:27 HR=84 bpm, ZWOO=848/84 mmhg, SpO2=97.0 %, Resp=12 B/min, Pain=0, Salud=10, العراقي=2 13:49:26 OAEQ=050/81 mmhg, SpO2=96.0 % 13:54:27 YXKY=754/85 mmhg, SpO2=98.0 % 13:56:24 Sterile dressing applied to site 13:56:32 Vitals capture stopped. 13:56:55 A Left Heart Cath was performed. 13:57:03 [facility] End Study - Contrast Media Used In Study Contrast Total Opened (mL) Total Used (mL) Total Wasted (mL) Omnipaque 150 25 125 End Study - Maximum Contrast Load Max Contrast Load (mL) 338.9 End Study - Radiation Exposure Fluoro Time (minutes) 1.1 End Study - Patient Disposition Complications Transferred To Interventional Outcome No Internet Sales Representative Holding successful
[2017-08-05] MEDS ORDERED: MISC INFORMATION XX ONE (15:15)
--- NOTE | 2017-08-05 16:38 | MA ---
cc: Marychuy Lopez MD,Lizbet Spangler MD DATE: 08/05/2017 INDICATIONS FOR CATHETERIZATION: 1. Left atrial myxoma. 2. Syncope. CONSENT: Full informed consent was obtained prior to the procedure. Risks of , bleeding, myocardial infarction, perforation, aspiration, foreseen and unforeseen complications were reviewed. The patient appeared to fully understand the risks and agreed to proceed. PROCEDURAL STATEMENT: The patient was draped and prepped in the usual manner. The right femoral artery was entered using the micropuncture technique. Via the 4-Yi sheath, left and right coronary catheters were used to intubate the right and left coronaries. At the end of the catheterization procedure, all catheters and sheaths were removed. Manual pressure was applied until good hemostasis was achieved and the patient was returned to her room in stable condition. FINDINGS: HEMODYNAMICS: Aortic pressure 125/80 with a mean of 101. Left ventricle was not entered because of the large left atrial myxoma. CORONARY ARTERIES: Left main is large and free of significant disease. Left anterior descending artery is a large vessel, free of significant disease. Diagonal branches are small and free of significant disease. The circumflex artery is a large artery with large first obtuse marginal branch, large second obtuse marginal branch. Right coronary artery is a large vessel, very tortuous with a karimi's crook. There is a large posterior descending artery and large posterolateral branches. CONCLUSION: Normal coronaries. PLAN: Proceed with left atrial myxoma surgery. Marychuy Lopez MD HAJ/TL , 02:48 PM , 04:37 PM
--- NOTE | 2017-08-06 09:38 | EKG ---
Date Performed: 08/05/2017 Time Performed: 11:20:48 PTAGE: 72 years EKG: Sinus rhythm . Anterolateral T wave changes are nonspecific Borderline ECG PREVIOUS TRACING : 08/02/2017 09.18 DOCTOR: Bhavin Quinones Interpretating Date/Time 08/06/2017 09:37:41
== END 2017-08-05 17:00 | disposition short-term general hospital (02) ==
LOC: HDOC 10:25 → HDIC 10:26 → HDOC 17:00
PROVIDERS: ATTEND Internal Medicine Cardiovascular Disease
DX: D15.1 Benign neoplasm of heart (principal); R55 Syncope and collapse; Z01.818 Encounter for other preprocedural examination
CPT/HCPCS: 80048; 85025; 85610; 85730; 93005; 93454; 99152; 99153; C1769; C1893; J1644; J2250; J3010; Q9967